=== PATIENT | female | born 1995 | race Caucasian/White ===

== ENCOUNTER 2017-05-15 02:03 | Emergency (ER) | payer OTHER ==
[2017-05-15 02:20] VITALS: BMI 26.4
[2017-05-15] MEDS ORDERED: NUBAIN INJ 10 IM ONE (02:52)
[2017-05-15] MEDS ORDERED: NUBAIN INJ 10 ONE (02:54)
[2017-05-15 03:04] VITALS: BP 103/66
--- NOTE | 2017-05-15 09:08 | DR.PREG ---
HPI - PCP Primary Care Physician: MOY - Chief Complaint Chief Complaint:: "I AM HAVING SHARP PAINS ONLY ON THE LEFT LOWER ABD, AND MY LEG IS GOING NUMB. PAIN IS CONSTANT , ALWAYS." PATIENT UNABLE TO TELL ME WHEN PAIN STARTED, STATES, "I DON'T KNOW." - Source History Provided: Patient - Mode of Arrival Mode of Arrival: Ambulatory - Context : 2 Para: 1 - Timing Onset of Chief Complaint: 05/15/17 Pain: Regular - Duration Pain Strength: Moderate PMH - PMH Past Medical History: Yes Past Medical History: Anemia Past Surgical History: No - Family History History of Family Medical Conditions: No - Social History Type of Tobacco Use: Cigarettes Alcohol Use: None Do you use any recreational Drugs:: No Lives With: Spouse Lives Where: Home - infectious screening Have you traveled outside the country in the last 6 months?: No Isolation: Standard PE - Vital Signs Vitals: Temperature 98.0 F Pulse Rate [Left Brachial] 103 Pulse Rate 128 Respiratory Rate 18 Blood Pressure [Left Arm] 103/66 Blood Pressure 107/60 O2 Sat by Pulse Oximetry 97 - Discharge Plan Disposition: 01 HOME, SELF-CARE Condition: Stable - Follow ups/Referrals Follow ups/Referrals: REBECA WINTER [Primary Care Provider] - 3 days - Instructions Instructions: Third Trimester of , [id number], Sciatica, Easy-to- Read
== END 2017-05-15 03:08 | disposition home or self-care (01) ==
LOC: ER 02:03
DX: R10.84 Generalized abdominal pain (principal); M54.30 Sciatica, unspecified side; Z3A.00 Weeks of gestation of pregnancy not specified
CPT/HCPCS: 96372; 99284; J2300

== ENCOUNTER → 2017-06-07 | Outpatient (CLI) | payer OTHER ==
[2017-05-15 03:04] VITALS: BP 103/66
[2017-06-07 12:37] LABS: BILIRUBIN,URINE NEGATIVE (NEGATIVE); BLOOD/HEMOGLOBIN,URINE NEGATIVE (NEGATIVE); GLUCOSE, URINE NEGATIVE (NEGATIVE); KETONES,URINE NEGATIVE (NEGATIVE); LEUKOCYTE ESTERASE ,URINE 2+ (NEGATIVE); NITRITES,URINE NEGATIVE (NEGATIVE); PROTEIN,URINE 2+ (NEGATIVE); UROBILINOGEN,URINE NORMAL (NORMAL)
[2017-06-07 12:40] LABS: BASOPHILS # (AUTO) 0.1 X10^3/uL (0.0-0.1); BASOPHILS % (AUTO) 0.7 % (0.2-1.0); EOSINOPHILS # (AUTO) 0.1 x10^3/uL (0.0-0.2); EOSINOPHILS % (AUTO) 0.6 % (0.9-2.9); HEMATOCRIT 26.8 % (36.0-47.0); HEMOGLOBIN 8.9 g/dL (12.0-16.0); LYMPHOCYTES # (AUTO) 2.6 X10^3/uL (1.3-2.9); LYMPHOCYTES % (AUTO) 20.4 % (21.0-51.0); MEAN CORPUSCULAR HEMOGLOBIN 25.1 pg (27.0-34.0); MEAN CORPUSCULAR HGB CONC 33.3 g/dL (33.0-35.0); MEAN CORPUSCULAR VOLUME 75.3 fL (80.0-100.0); MEAN PLATELET VOLUME 7.8 fL (7.4-11.0); MONOCYTES # (AUTO) 0.8 x10^3/uL (0.3-0.8); MONOCYTES % (AUTO) 6.4 % (0.0-13.0); NEUTROPHILS # (AUTO) 9.1 x10^3/uL (2.2-4.8); NEUTROPHILS % (AUTO) 71.9 % (42.0-75.0); PLATELET COUNT 322 X10^3/uL (150.0-450.0); RED BLOOD COUNT 3.56 X10^6/uL (3.5-5.4); RED CELL DISTRIBUTION WIDTH 15.2 % (11.6-16.5); WHITE BLOOD COUNT 12.7 X10^3/uL (3.6-10.0)
[2017-06-07 12:44] LABS: BLOOD UREA NITROGEN 7 mg/dL (7-18); CARBON DIOXIDE 22.7 mmol/L (21-32); CHLORIDE 103 mmol/L (98-107); SODIUM 135 mmol/L (136-145); eGFR BLACK RACES > 60 (>60); eGFR NON BLACK RACES > 60 (>60)
[2017-06-07 12:47] LABS: APPEARANCE,URINE SLIGHTLY HAZY (CLEAR); COLOR,URINE YELLOW (YELLOW)
[2017-06-07 12:48] LABS: BACTERIA,URINE TRACE /HPF (NEGATIVE); RBC,URINE 0-3 /HPF (NEGATIVE); SQUAMOUS EPITHELIAL CELL,UR MODERATE /HPF (NEGATIVE)
[2017-06-07 12:53] LABS: PLATELET MORPHOLOGY COMMENT NORMAL (NORMAL)
== END ==
LOC: LAB 11:51
PROVIDERS: ATTEND Specialist
DX: Z01.818 Encounter for other preprocedural examination (principal); Z01.812 Encounter for preprocedural laboratory examination; Z34.83 Encounter for supervision of other normal pregnancy, third trimester
CPT/HCPCS: 36415; 80048; 80307; 81001; 85025; 86592; 86850; 86900; 86901; G0434

== ENCOUNTER 2017-06-10 06:30 | Inpatient (IN) | payer OTHER ==
[~2017-06-10 06:30] MED LIST: D5 1/2 NS 1000 ML 1,000 ML IV ONE; D5 1/2 NS 1L W PITOCIN 20 UNITS/L 20 UNITS/1,000 ML BAG IV ONE; D5LR 1L W PITOCIN 10 UNITS/L 10 UNITS/1,000 ML BAG IV ONE; LR 1000 ML IV 1,000 ML IV ONE; PITOCIN ONE
--- NOTE | 2017-06-10 07:10 | DR.OB ---
OB Quick Note - Assessment/Plan Assessment/Plan: L&D 06/10/17 at 7:00am S-No complaint. O-Afebrile,VSS PIG=818 with good LTV, +accel, no decel. CTX=none CVX=2cm/75%/-1/VTX AROM with clear fluid. IUPC and FSE placed. A-IUP at 38 6/7 weeks for induction IUGR anemia P-Begin pitocin induction Anticipate
[2017-06-10] MEDS ORDERED: REGLAN INJ 10 MG VIAL IVP PRN ×3 (07:17→17:54)
[2017-06-10] MEDS ORDERED: D5LR 1L W PITOCIN 10 UNITS/L 10 UNITS/1,000 ML BAG IV PRN (07:17)
[2017-06-10] MEDS ORDERED: MORPHINE SULFATE INJ 2 MG INJ IVP PRN (07:17)
[2017-06-10] MEDS ORDERED: PHENERGAN INJ 25 MG IV PRN ×2 (07:17→17:54)
[2017-06-10] MEDS ORDERED: D5 1/2 NS 1000 ML 1,000 ML IV SCH (07:17)
[2017-06-10] MEDS ORDERED: PITOCIN IVP ONE (07:17)
[2017-06-10] MEDS ORDERED: NUBAIN INJ 200 MG VIAL MULTIDOSE IVP PRN (07:17)
[2017-06-10] MEDS ORDERED: NAROPIN EPIDURAL 0.2% + FENTANYL 90MCG 60 ML EPI ONE (10:42)
[2017-06-10] MEDS ORDERED: FENTANYL INJ 100 mcg ONE (10:42)
--- NOTE | 2017-06-10 12:05 | DR.OB ---
OB Quick Note - Assessment/Plan Assessment/Plan: L&D 06/10/17 at 11:55am Pitocin=20mu/min. S-No complaint. O-Afebrile,VSS XCF=074 with good LTV, +accel, no decel. CTX=q 1 1/2 to 2 min., about 35-55mmHg CVX=3cm/75%/-1 A-IUP at 38 6/7 weeks for induction IUGR anemia P-Cont. pitocin induction Anticipate
[2017-06-10] MEDS ORDERED: LR 1000 ML IV 1,000 ML IV ONE ×2 (12:19→16:20)
[2017-06-10] MEDS ORDERED: FENTANYL INJ 100 mcg EPI ONE (12:19)
[2017-06-10] MEDS ORDERED: D5LR 1L W PITOCIN 10 UNITS/L 0 UNITS/0 ML BAG IV ONE (12:49)
[2017-06-10] MEDS ORDERED: NAROPIN EPIDURAL 0.2% 60 ML with FENTANYL INJ 100 mcg 90 MCG IVP SCH ×2 (13:00)
[2017-06-10] MEDS ORDERED: VERSED ONE (15:24)
[2017-06-10] MEDS ORDERED: PITOCIN ONE (15:24)
[2017-06-10] MEDS ORDERED: DIPRIVAN VIAL ONE (15:24)
[2017-06-10] MEDS ORDERED: ANCEF VIAL 1 GM ONE (16:20)
[2017-06-10] MEDS ORDERED: NS 50 ML IV 50 ML IV ONE (16:21)
[2017-06-10] MEDS ORDERED: DURAMORPH ONE (16:26)
[2017-06-10] MEDS ORDERED: XYLOCAINE 2% and EPINEPHRINE 1:100,000 ONE (16:29)
--- NOTE | 2017-06-10 16:38 | DR.OB ---
OB Quick Note - Assessment/Plan Assessment/Plan: L&D 06/10/17 at 4:20pm Pitocin=22mu/min. S-No complaint. s/p epidural. O-Afebrile,VSS VMH=520 with good LTV, +accel, no decel. CTX=q 1 1/2 to 5 min., about 35-55mmHg CVX=3cm/90%/-1 (no change) A-IUP at 38 6/7 weeks with failure to dilate P-To C/S
[2017-06-10] MEDS ORDERED: NS IRRIGATION 1000 ML 1,000 ML IR ONE (17:22)
[2017-06-10] MEDS ORDERED: PHENERGAN INJ 25 MG IVP PRN (17:49)
[2017-06-10] MEDS ORDERED: ZOFRAN INJ 4 MG VIAL IVP PRN ×2 (17:49→17:54)
[2017-06-10] MEDS ORDERED: BENADRYL INJ 50 MG VIAL IVP PRN ×2 (17:49→17:54)
[2017-06-10] MEDS ORDERED: DILAUDID INJ IVP PRN (17:49)
[2017-06-10] MEDS ORDERED: PERCOCET TAB 5/325 MG PO PRN (17:54)
[2017-06-10] MEDS ORDERED: NARCAN INJ IVP PRN (17:54)
[2017-06-10] MEDS ORDERED: TORADOL 30 MG VIAL IVP PRN (17:54)
[2017-06-10] MEDS ORDERED: ADACEL TDaP IM ONE (17:54)
[2017-06-10] MEDS ORDERED: MYLICON TAB 80 MG CHEW PO PRN (17:54)
[2017-06-10] MEDS ORDERED: FERROUS GLUCONATE PO SCH (18:00)
[2017-06-10] MEDS ORDERED: D5 1/2 NS 1000 ML 1,000 ML with PITOCIN 20 UNITS IV SCH ×2 (18:00)
[2017-06-10] MEDS: ZANTAC PO SCH (21:17)
[2017-06-11 05:23] LABS: HEMATOCRIT 23.7 % (36.0-47.0); HEMOGLOBIN 7.8 g/dL (12.0-16.0)
[2017-06-11] MEDS ORDERED: MOTRIN TAB 800 MG PO PRN (07:03)
[2017-06-11] MEDS: COLACE CAP 100 MG PO SCH ×2 (08:51→21:14)
[2017-06-11] MEDS: FERROUS GLUCONATE PO SCH ×2 (08:51→16:10)
[2017-06-11] MEDS: ZANTAC PO SCH ×2 (08:52→21:14)
[2017-06-11] MEDS: PERCOCET TAB 5/325 MG PO PRN ×2 (14:00→19:32)
[2017-06-11] MEDS: PRENATAL PLUS PO SCH (14:09)
[2017-06-11] MEDS: BACTROBAN OINT TOP SCH (14:09)
[2017-06-12] MEDS: PERCOCET TAB 5/325 MG PO PRN (03:19)
[2017-06-12] MEDS: FERROUS GLUCONATE PO SCH (06:03)
[2017-06-12] MEDS: BACTROBAN OINT TOP SCH ×2 (06:05→06:06)
[2017-06-12] MEDS ORDERED: DEPO-PROVERA CONTRACEPTIVE INJ IM ONE (07:57)
[2017-06-12] MEDS: ZANTAC PO SCH (08:38)
[2017-06-12] MEDS: COLACE CAP 100 MG PO SCH (08:38)
[2017-06-12] MEDS: PRENATAL PLUS PO SCH (08:38)
[2017-06-12 09:39] VITALS: BP 121/76
== END 2017-06-12 12:05 | disposition home or self-care (01) | DRG 765 ==
LOC: LD 06:30 → MED/SURG 18:14
PROVIDERS: ADMIT Specialist; ATTEND Specialist
PROC: 10D00Z1 Extraction of Products of Conception, Low, Open Approach (ICD-10-PCS; principal; 2017-06-10 16:30)
DX: O36.5930 Maternal care for other known or suspected poor fetal growth, third trimester, not applicable or unspecified (principal); Z37.0 Single live birth; O99.13 Other diseases of the blood and blood-forming organs and certain disorders involving the immune mechanism complicating the puerperium; D50.8 Other iron deficiency anemias; O62.0 Primary inadequate contractions; O99.013 Anemia complicating pregnancy, third trimester; Z3A.38 38 weeks gestation of pregnancy
CPT/HCPCS: 36415; 80048; 80307; 81001; 85014; 85018; 85025; 86592; 86850; 86900; 86901; 94640; A4216; A4222; S0197; G0434; J0690; J1050; J2001; J2250; J2405; J2590; J3010; J3490; J7042; J7120